=== PATIENT | female | born 2000 | race African-American/Black ===

== ENCOUNTER 2019-07-22 20:51 | Inpatient (IN) | payer BC, MEDICAID ==
[2019-07-22 21:18] LABS: APPEARANCE,URINE CLEAR; BILIRUBIN,URINE NEGATIVE (NEGATIVE); COLOR,URINE STRAW; GLUCOSE, URINE NEGATIVE (NEGATIVE); KETONES,URINE NEGATIVE (NEGATIVE); LEUKOCYTE ESTERASE,URINE NEGATIVE (NEGATIVE); NITRITE,URINE NEGATIVE (NEGATIVE); PROTEIN,URINE NEGATIVE (NEGATIVE); URINE SPECIFIC GRAVITY 1.005; UROBILINOGEN,URINE NEGATIVE mg/dL (<2.0)
[2019-07-22 21:36] LABS: URINE AMPHETAMINES SCREEN NEGATIVE; URINE BARBITURATES SCREEN NEGATIVE; URINE BENZODIAZEPINES SCREEN NEGATIVE; URINE COCAINE SCREEN NEGATIVE; URINE METHADONE SCREEN NEGATIVE; URINE PHENCYCLIDINE SCREEN NEGATIVE
[2019-07-22 21:38] LABS: URINE MARIJUANA (THC) SCREEN UNCONFIRMED POSITIVE
[2019-07-22] MEDS ORDERED: HYDROXYZINE PAMOATE 50 MG CAPSULE ONE (23:33)
[2019-07-23] MEDS ORDERED: HYDROXYZINE PAMOATE 50 MG CAPSULE PO ONE (00:05)
[2019-07-23] MEDS ORDERED: RINGERS SOLUTION,LACTATED 1,000 ML IV PRN (00:05)
[2019-07-23] MEDS ORDERED: RINGERS SOLUTION,LACTATED 1,000 ML IV ONE (00:05)
[2019-07-23] MEDS ORDERED: MORPHINE SULFATE 10 MG/ML INJ ONE (00:10)
[2019-07-23] MEDS ORDERED: MORPHINE SULFATE 10 MG/ML INJ IM ONE (00:12)
--- NOTE | 2019-07-23 01:48 | Admission Physical ---
Datetime Report Generated by CPN: 07/23/2019 01:47 CURRENT ADMISSION Chief Complaint: Uterine Contractions ALLERGIES Medication Allergies: Yes Medication Allergies: risperidone (07/22/2019); aripiprazole (07/22/2019) Latex: No Latex Allergies OBSTETRICAL HISTORY EDC: 07/25/2019 00:00 : 1 Para: 0 Gestational Diabetes: No Rh Sensitization: No Incompetent Cervix: No ZAN: No Infertility: No ART Treatment: No Uterine Anomaly: No IUGR: No Hx Previous C/S: No Macrosomia: No Hx Loss/Stillborn: No PIH: No Hx : No Placenta Previa/Abruption: No Depression/PP Depression: No PTL/PROM: No Post Hemorrhage: No Current Procedures: Ultrasound; NST Obstetrical History Comments: G1- current SEE RECORDS Alcohol: No Marijuana : No Cocaine: No Other Illicit Drugs: No Cigarettes: Current Everyday Smoker. [id number] MEDICAL HISTORY Diabetes: No Blood Transfusion: No Pulmonary Disease (Asthma, TB): No Breast Disease: No Hypertension: No Occupational Health Physician Surgery: No Heart Disease: No Hosp/Surgery: No Autoimmune Disorder: No Anesthetic Complications: No Kidney Disease: No Abnormal Pap Smear: No Neuro/Epilepsy: No Psychiatric Disorders: Yes Other Medical Diseases: Yes Hepatitis/Liver Disease: No Significant Family History: No Varicosities/Phlebitis: No Trauma/Violence : No Thyroid Dysfunction: No Medical History Comments: oppositional defiant disorder, bipolar disorder unspecified, anxiety, depression, ADHD, substance abuse, anemia INFECTIOUS HISTORY Gonorrhea: No Genital Herpes: No Chlamydia: No Tuberculosis: No Syphilis: No Hepatitis: No HIV/AIDS Exposure: No Rash or Viral Illness: No HPV: No PHYSICAL EXAM General: Normal HEENT: Normal Neurologic: Normal Thyroid: Deferred Heart: Normal Lungs: Normal Breast: Deferred Back: Normal Abdomen: Normal Genitourinary Exam: Normal Extremities: Normal DTRs: Normal Pelvic Type: Adequate Vital Signs: Reviewed VAGINAL EXAM Dilatation: 4 Effacement: 80 Station: -2 Contraction Comments: q 2-3 MEMBRANES Membranes: Intact FETUS A EGA: 39.5 Monitoring: External US FHR- Baseline: 140 Variability: Moderate 6-25bpm Accelerations: 15X15 Decelerations: None FHR Category: Category I Presentation: Vertex Admit Comment: 18yo at 39+5ega presents for contractions at 2045 by EMS. Cvx was 2cm. Patient recked after 2 hours and no change. She declined IV fluid. Desired Vistaril and IM morphine and then was brody after 2 hours and now with cervical change to 4cm. GBS negative. Records received. THC positive. ANemia - recieving venofer and po iron. Admit and augment labor if needed. Epidural upon patient request. PLANS FOR LABOR AND DELIVERY Labor and Delivery: None Pain Management: Epidural Feeding Preference: Formula Circumcision: Yes INFORMED CONSENT Signature: with User ID: [email or web address]
[2019-07-23 02:09] LABS: HEMATOCRIT 31.9 % (36.0-47.0); HEMOGLOBIN 11.1 g/dL (12.0-15.5); MEAN CORPUSCULAR HEMOGLOBIN 31.1 pg (27.0-33.4); MEAN CORPUSCULAR HGB CONC 34.7 g/dL (32.0-36.0); MEAN CORPUSCULAR VOLUME 90 fl (80-97); PLATELET COUNT 271 10^3/uL (150-450); RED BLOOD COUNT 3.57 10^6/uL (3.72-5.28); RED CELL DISTRIBUTION WIDTH 13.7 % (11.5-14.0); WHITE BLOOD COUNT 9.5 10^3/uL (4.0-10.5)
[2019-07-23] MEDS ORDERED: EPHEDRINE SULFATE INJ 50 MG/1 ML AMPULE ONE (03:03)
[2019-07-23] MEDS ORDERED: MISOPROSTOL 0.2 MG TABLET ONE (03:03)
[2019-07-23] MEDS ORDERED: OXYTOCIN 10 UNIT/ML VIAL ONE (03:03)
[2019-07-23] MEDS ORDERED: FENTANYL/BUPIVACAINE/NS/PF 300 MCG/150 ML RTUINJ EPI ONE (03:04)
[2019-07-23] MEDS ORDERED: LIDOCAINE 1% INJ-PF (10 MG/ML) 30 ML SDV ONE (03:04)
[2019-07-23] MEDS ORDERED: OXYTOCIN/NORMAL SALINE 20 UNIT/1,000 ML RTUINJ ONE (03:04)
[2019-07-23] MEDS ORDERED: BUPIVACAINE HCL 0.25 % INJ/PF (2.5 MG/1 ML) 30 ML VIAL ONE (03:04)
[2019-07-23] MEDS ORDERED: IBUPROFEN 800 MG TABLET ONE (06:05)
[2019-07-23] MEDS ORDERED: NA PHOS,M-B/NA PHOS,DI-BA (ADULT) 133 ML ENEMA PR PRN (07:04)
[2019-07-23] MEDS ORDERED: OXYTOCIN/NORMAL SALINE 20 UNIT/1,000 ML RTUINJ IV PRN (07:04)
[2019-07-23] MEDS ORDERED: MAGNESIUM HYDROXIDE SUSP 30 ML UDCUP PO PRN (07:04)
[2019-07-23] MEDS ORDERED: ACETAMINOPHEN 325 MG TABLET PO PRN (07:04)
[2019-07-23] MEDS ORDERED: ACETAMINOPHEN WITH CODEINE #3 TABLET PO PRN ×2 (07:04)
[2019-07-23] MEDS ORDERED: DIBUCAINE 1% OINTMENT 28 GM TP PRN (07:04)
[2019-07-23] MEDS ORDERED: DIPHENHYDRAMINE HCL 25 MG CAPSULE PO PRN (07:04)
[2019-07-23] MEDS ORDERED: DIPH/PERTUSS(ACELL)/TETANUS VAC/PF 0.5 ML SYR (>=10YO) IM PRN (07:04)
[2019-07-23] MEDS ORDERED: PROMETHAZINE HCL INJ 25 MG/1 ML VIAL IV PRN (07:04)
[2019-07-23] MEDS ORDERED: GLYCERIN/WITCH HAZEL LEAF 1 EACH MED..WIPE TP PRN (07:04)
[2019-07-23] MEDS ORDERED: ZOLPIDEM TARTRATE 5 MG TABLET PO PRN (07:04)
[2019-07-23] MEDS ORDERED: PROMETHAZINE HCL 25 MG SUPP.RECT PR PRN (07:04)
[2019-07-23] MEDS ORDERED: BENZOCAINE/MENTHOL AEROSOL SPRAY 56 ML TOP PRN (07:04)
[2019-07-23] MEDS ORDERED: MEASLES,MUMPS&RUBELLA VACC/PF 0.5 ML VIAL SUBCUT PRN (07:04)
[2019-07-23] MEDS ORDERED: PSEUDOEPHEDRINE HCL 30 MG TABLET PO PRN (07:04)
[2019-07-23] MEDS ORDERED: PROMETHAZINE HCL 25 MG TABLET PO PRN (07:04)
[2019-07-23] MEDS: DOCUSATE SODIUM 100 MG CAPSULE PO SCH ×2 (09:29→17:10)
[2019-07-23] MEDS: SENNOSIDES/DOCUSATE 8.6-50 MG 1 EACH TABLET PO SCH (09:29)
[2019-07-23] MEDS: FERROUS SULFATE 325 MG TABLET PO SCH ×2 (09:29→17:10)
[2019-07-23] MEDS: FAMOTIDINE 20 MG TABLET PO SCH ×2 (09:29→21:47)
[2019-07-23] MEDS: PRENATAL VITAMIN W DHA CAPSULE PO SCH (09:30)
[2019-07-23] MEDS: IBUPROFEN 800 MG TABLET PO SCH ×2 (13:18→21:47)
[2019-07-24] MEDS: IBUPROFEN 800 MG TABLET PO SCH ×3 (05:09→22:03)
[2019-07-24 07:01] LABS: HEMATOCRIT 28.4 % (36.0-47.0); MEAN CORPUSCULAR HEMOGLOBIN 31.3 pg (27.0-33.4); MEAN CORPUSCULAR VOLUME 90 fl (80-97); PLATELET COUNT 240 10^3/uL (150-450); RED BLOOD COUNT 3.18 10^6/uL (3.72-5.28); RED CELL DISTRIBUTION WIDTH 14.1 % (11.5-14.0); WHITE BLOOD COUNT 8.6 10^3/uL (4.0-10.5)
[2019-07-24] MEDS: SENNOSIDES/DOCUSATE 8.6-50 MG 1 EACH TABLET PO SCH (10:01)
[2019-07-24] MEDS: DOCUSATE SODIUM 100 MG CAPSULE PO SCH ×2 (10:01→17:21)
[2019-07-24] MEDS: FERROUS SULFATE 325 MG TABLET PO SCH ×2 (10:01→17:21)
[2019-07-24] MEDS: FAMOTIDINE 20 MG TABLET PO SCH ×2 (10:01→22:03)
[2019-07-24] MEDS: PRENATAL VITAMIN W DHA CAPSULE PO SCH (10:01)
--- NOTE | 2019-07-24 13:13 | PDOC PROGRESS REPORT ---
Subjective-OB Progress Note for:: 07/24/19 Subjective: 18yo G1 now P1 s/p ppd1. Pt reports pain well controlled with medication no concerns today, voiding without difficulty. Physical Exam (OB) Vital Signs: Temp Pulse Resp BP Pulse Ox 98.1 F 62 18 100/61 100 07/24/19 07:30 07/24/19 07:30 07/24/19 07:30 07/24/19 07:30 07/24/19 07:30 Intake & Output 07/23/19 07/24/19 07/25/19 06:59 06:59 06:59 Intake Total 1440 500 Balance 1440 500 Weight 65.317 kg - General General Appearance: Appears well In distress: None - PIH/Pre-Eclampsia Clonus: Negative Headache: Absent Epigastric Pain: No Visual Changes: No - Episiotomy/Laceration Site Condition: Well Approximated - Lochia Lochia Amount: Small 10-25 ml Lochia Color: Rubra/Red - Abdomen Description: Soft Hernia Present: No Fundal Description: Firm, Midline Fundal Height: u/u - u/2 - Respiratory Respiratory Status: No respiratory distress - Extremities Upper extremity: Normal inspection Lower extremities: Normal inspection - Neurological Cognition: Normal Orientation: AAOx4 - Psychological Associated symptoms: Normal affect, Normal mood Objective-Diagnostic Laboratory: 07/24/19 06:11 07/24/19 06:11 WBC 8.6 RBC 3.18 L Hgb 10.0 L Hct 28.4 L MCV 90 MCH 31.3 MCHC 35.0 RDW 14.1 H Plt Count 240 Assessment and Plan(PN) - Assessment and Plan (1) Active labor at term Is this a current diagnosis for this admission?: Yes Plan: delivered (2) Acute blood loss anemia Is this a current diagnosis for this admission?: Yes Plan: increase dietary iron and FeSO4 BID (3) Iron deficiency anemia during Is this a current diagnosis for this admission?: Yes Plan: increase dietary iron and FeSO4 BID (4) Obstetrical laceration, first degree Is this a current diagnosis for this admission?: Yes Plan: continue to monitor for s/s of infection (5) Vaginal delivery Is this a current diagnosis for this admission?: Yes Plan: routine pp care - Time Spent with Patient Time with patient: Less than 15 minutes Smoking Education Provided: Over 3 minutes Medications reviewed and adjusted accordingly: Yes - Disposition Anticipated Discharge: Home Within: within 24 hours
[2019-07-25] MEDS: IBUPROFEN 800 MG TABLET PO SCH ×2 (06:44→14:29)
[2019-07-25 08:04] VITALS: BP 123/63
[2019-07-25] MEDS: FAMOTIDINE 20 MG TABLET PO SCH (10:19)
[2019-07-25] MEDS: FERROUS SULFATE 325 MG TABLET PO SCH (10:19)
[2019-07-25] MEDS: DOCUSATE SODIUM 100 MG CAPSULE PO SCH (10:19)
[2019-07-25] MEDS: SENNOSIDES/DOCUSATE 8.6-50 MG 1 EACH TABLET PO SCH (10:19)
[2019-07-25] MEDS: PRENATAL VITAMIN W DHA CAPSULE PO SCH (10:19)
--- NOTE | 2019-07-25 11:15 | PDOC DISCHARGE SUMMARY ---
Impression - Admit/DC Date/PCP Admission Date/Primary Care Provider: 07/23/19 01:41 HAYLEY ZAMORA MD Discharge Date: 07/25/19 - Discharge Diagnosis (1) Active labor at term Is this a current diagnosis for this admission?: Yes (2) Acute blood loss anemia Is this a current diagnosis for this admission?: Yes (3) Iron deficiency anemia during Is this a current diagnosis for this admission?: Yes (4) Obstetrical laceration, first degree Is this a current diagnosis for this admission?: Yes (5) Vaginal delivery Is this a current diagnosis for this admission?: Yes - Assessment Summary: 18yo G1 now P1 s/p ppd 2 stable and ready for discharge, understands warning s/s and reasons to seek immediate care - Additional Information Resuscitation Status: Full Code Discharge Diet: As Tolerated, Regular Discharge Activity: Activity As Tolerated, Balance Activity w/Rest, No Lifting Over 10 Pounds, Pelvic Rest, No tub bath, Walk Frequently Referrals: HAYLEY ZAMORA MD [Primary Care Provider] - Prescriptions: Docusate Sodium [Colace 100 mg Capsule] 100 mg PO BID #60 capsule Ferrous Sulfate [Ferosul] 325 mg PO BID #60 Ibuprofen [Motrin 800 mg Tablet] 800 mg PO Q8H PRN #20 tab PRN Reason: Abdominal Cramping Home Medications: Prenat 115/Iron Fum/Folic/Dss [ 19 Tablet] 1 tab PO DAILY 07/22/19 Docusate Sodium [Colace 100 mg Capsule] 100 mg PO BID capsule 07/24/19 Docusate Sodium [Colace 100 mg Capsule] 100 mg PO BID #60 capsule 07/24/19 Ferrous Sulfate [Ferosul] 325 mg PO BID #60 07/24/19 Ibuprofen [Motrin 800 mg Tablet] 800 mg PO Q8H PRN #20 tab 07/24/19 Results Laboratory Results: WBC 8.6 10^3/uL (4.0-10.5) 07/24/19 06:11 RBC 3.18 10^6/uL (3.72-5.28) L 07/24/19 06:11 Hgb 10.0 g/dL (12.0-15.5) L 07/24/19 06:11 Hct 28.4 % (36.0-47.0) L 07/24/19 06:11 MCV 90 fl (80-97) 07/24/19 06:11 MCH 31.3 pg (27.0-33.4) 07/24/19 06:11 MCHC 35.0 g/dL (32.0-36.0) 07/24/19 06:11 RDW 14.1 % (11.5-14.0) H 07/24/19 06:11 Plt Count 240 10^3/uL (150-450) 07/24/19 06:11 Urine Color STRAW 07/22/19 20:55 Urine Appearance CLEAR 07/22/19 20:55 Urine pH 7.0 (5.0-9.0) 07/22/19 20:55 Ur Specific Chambers 1.005 07/22/19 20:55 Urine Protein NEGATIVE mg/dL (NEGATIVE) 07/22/19 20:55 Urine Glucose (UA) NEGATIVE mg/dL (NEGATIVE) 07/22/19 20:55 Urine Ketones NEGATIVE mg/dL (NEGATIVE) 07/22/19 20:55 Urine Blood NEGATIVE (NEGATIVE) 07/22/19 20:55 Urine Nitrite NEGATIVE (NEGATIVE) 07/22/19 20:55 Urine Bilirubin NEGATIVE (NEGATIVE) 07/22/19 20:55 Urine Urobilinogen NEGATIVE mg/dL (<2.0) 07/22/19 20:55 Ur Leukocyte Esterase NEGATIVE (NEGATIVE) 07/22/19 20:55 Urine Ascorbic Acid NEGATIVE (NEGATIVE) 07/22/19 20:55 Urine Opiates Screen NEGATIVE 07/22/19 20:55 Urine Methadone Screen NEGATIVE 07/22/19 20:55 Ur Barbiturates Screen NEGATIVE 07/22/19 20:55 Ur Phencyclidine Scrn NEGATIVE 07/22/19 20:55 Ur Amphetamines Screen NEGATIVE 07/22/19 20:55 U Benzodiazepines Scrn NEGATIVE 07/22/19 20:55 Urine Cocaine Screen NEGATIVE 07/22/19 20:55 U Marijuana (THC) Screen UNCONFIRMED POSITIVE 07/22/19 20:55 RPR NONREACTIVE (NONREACTIVE) 07/23/19 01:51 Blood Type B POSITIVE 07/23/19 01:51 Antibody Screen NEGATIVE 07/23/19 01:51
[2019-07-25] MEDS ORDERED: MEASLES,MUMPS&RUBELLA VACC/PF 0.5 ML VIAL SUBCUT PRN (11:30)
[2019-07-25] MEDS ORDERED: DIPH/PERTUSS(ACELL)/TETANUS VAC/PF 0.5 ML SYR (>=10YO) IM PRN (11:30)
[2019-07-25] MEDS ORDERED: PROMETHAZINE HCL INJ 25 MG/1 ML VIAL IV PRN (11:30)
--- NOTE | 2019-07-26 15:01 | Delivery Summary ---
Del Sum A-C Datetime Report Generated by CPN: 07/26/2019 15:01 DELIVERY PERSONNEL DELIVERY PERSONNEL: [id number] Delivery Doctor:: Leigh Ann Hay MD RAILROAD DETECTIVE:: Reji Galvez CRNA Labor and Delivery Nurse:: GLENYS Atkinson Labor and Delivery Nurse:: Adrianne Bourne RN Nursery Nurse:: Sofia Silva RN Nursery Nurse:: Cathy Underwood RN Electric Power Machine Operator/SUPERIOR COURT JUSTICE: [place], ST MATERNAL INFORMATION Delivery Anesthesia: Epidural Medications After Delivery: Pitocin Drip 20 Units/1000ml NSS Estimated Blood Loss (ml): 100 Maternal Complications: None Provider Comments: VMI delivered in LINDA presentation. Loose nuchal cord easily reduced. Shoulders and body delivered without difficulty. Cord doubly clamped and cut and infant to maternal abdomen. Placenta delivered intact spontaneously. FF at U. Bladder drained 250ml. 1st degree laceration repaired with good hemostasis. Mother and baby stable upon provider leaving the room. LABOR SUMMARY EDC: 07/25/2019 00:00 No. Babies in Womb: 1 Attempted: No Labor Anesthesia: Epidural LABOR INFORMATION Reason for Induction: Not Applicable Onset of Labor: 07/23/2019 02:00 Complete Dilatation: 07/23/2019 03:55 Oxytocin: N/A Group B Beta Strep: negative Antibiotics # of Doses: 0 Antibiotics Time of Last Dose: 0 Name of Antibiotic Given: 0 Steroids Given: None Reason Steroids Not Administered: Not Applicable MEMBRANES Membranes Rupture Method: Artificial Rupture of Membranes: 07/23/2019 04:00 Length of Rupture (hr): 0.12 Amniotic Fluid Color: Clear Amniotic Fluid Amount: Small Amniotic Fluid Odor: None STAGES OF LABOR Stage 1 hr: 1 Stage 1 min: 55 Stage 2 hr: 0 Stage 2 min: 12 Stage 3 hr: 0 Stage 3 min: 7 Total Time in Labor hr: 2 Total Time in Labor min: 14 VAGINAL DELIVERY Episiotomy: None Laceration #1: Perineal Laceration Extension #1: First Degree Laceration Repair: Yes Laceration Repair Note: 1st degree perineal laceration repaired with good hemostasis Sponge Count Correct: Yes Sharps Count Correct: Yes BABY A INFORMATION Delivery Date/Time: 07/23/2019 04:07 Method of Delivery: Vaginal Nurse Controlled Delivery: No Born in Route : No : N/A Forceps: N/A Vacuum Extraction: N/A Shoulder Dystocia : No PRESENTATION/POSITION BABY A Presentation: Cephalic Cephalic Presentation: Vertex Vertex Position: Left Occipital Anterior Breech Presentation: N/A PLACENTA INFORMATION BABY A Placenta Delivery Time : 07/23/2019 04:14 Placenta Method of Delivery: Spontaneous Placenta Status: Delivered SCORES BABY A Heart Rate 1 min: >100 bpm Resp Effort 1 min: Good Cry Reflex Irritability 1 min: Cough or Sneeze or Pulls Away Muscle Tone 1 min: Active Motion Color 1 min: Body Cantril, Extremities Blue Resuscitation Effort 1 min: Tactile Stimulation SCORE 1 MIN: 9 Heart Rate 5 min: >100 bpm Resp Effort 5 min: Good Cry Reflex Irritability 5 min: Cough or Sneeze or Pulls Away Muscle Tone 5 min: Active Motion Color 5 min: Body Cantril, Extremities Blue Resuscitation Effort 5 min: N/A SCORE 5 MIN: 9 INFANT INFORMATION BABY A Gestational Age at Delivery: 39.5 Gestational Status: Full Term- 39- 40.6 Weeks Outcome : Liveborn Infant Condition : Stable Sex: Male IDENTIFICATION BABY A Infant Verification Date/Time: 07/23/2019 06:20 ID Band Number: [id number] Mother's Name Verified: Yes Infant RN Verifying : Ghassan Lindsey, RNC Additional Verifying Personnel: Ashley Bourne RN WEIGHT/LENGTH BABY A Birthweight (gm): 3691 Weight (lb): 8 Infant Weight (oz): 2 Infant Length (in): 19.50 Length (cm): 49.53 CORD INFORMATION BABY A No. Cord Vessels: 3 Nuchal Cord : N/A Nuchal Cord- Other: Compound left hand Cord Blood Taken: Yes-For Storage (Mom's Blood type +) Suction: Mouth; Nose ASSESSMENT BABY A Skin to Skin: No Skin to Skin Time (min): 0 SIGNATURES Signature: with User ID: [email or web address]
== END 2019-07-25 16:45 | disposition home or self-care (01) | DRG 807 ==
LOC: LC 20:51 → LR 07-23 01:41 → 2S 07-23 08:08
PROVIDERS: ADMIT Student in an Organized Health Care Education/Training Program; ATTEND Student in an Organized Health Care Education/Training Program
PROC: 10E0XZZ Delivery of Products of Conception, External Approach (ICD-10-PCS; principal; 2019-07-23)
PROC: 0HQ9XZZ Repair Perineum Skin, External Approach (ICD-10-PCS; 2019-07-23)
DX: O99.324 Drug use complicating childbirth (principal); Z37.0 Single live birth; O99.02 Anemia complicating childbirth; D50.9 Iron deficiency anemia, unspecified; O70.0 First degree perineal laceration during delivery; O69.81X0 Labor and delivery complicated by cord around neck, without compression, not applicable or unspecified; O32.6XX0 Maternal care for compound presentation, not applicable or unspecified; O99.334 Smoking (tobacco) complicating childbirth; F12.90 Cannabis use, unspecified, uncomplicated; F17.210 Nicotine dependence, cigarettes, uncomplicated; F41.8 Other specified anxiety disorders; Z3A.39 39 weeks gestation of pregnancy
CPT/HCPCS: 1967; 36415; 80307; 80349; 81005; 85027; 86592; 86850; 86900; 86901; 87522; 94760; G0480; J2270; J2590; J3010; J3490